=== PATIENT | female | born 1955 | race Caucasian/White ===

== ENCOUNTER 2019-12-26 17:40 | Inpatient (IN) | payer OTHER ==
[~2019-12-26] VITALS: Ht 157.5 cm; Wt 77.6 kg
[2019-12-26] MEDS ORDERED: COZAAR25 MG PO (17:52)
[2019-12-26] MEDS ORDERED: METFORMIN HCL500 M1 PO (17:52)
[2019-12-26] MEDS ORDERED: SYNTHROID137 MCG PO (17:52)
[2019-12-26] MEDS ORDERED: HORIZANT300 MG PO (17:53)
[2019-12-26] MEDS ORDERED: LIPITOR20 MG PO (17:53)
[2019-12-26] MEDS ORDERED: CYNBALTA (17:53)
--- NOTE | 2019-12-26 17:54 | NUR ---
PACIENTE ALERTA Y ORIENTADA X3 QUIEN ESTUBO DE VIAJE POR EUROPA REFIRE TOS SECA Y DOLOR EN PECHO Y ESPALDA DE TANTO TOSER DESDE HACE MAXIMILIANO SEMANA, SE UBICA EN CARMINA DE ESPERA PARA EVALUACION MEDICA.
--- NOTE | 2019-12-26 20:10 | NUR ---
SE ORIENTA AL PACIENTE SOBRE EL TX. SE EXTRAEN MUESTRAS DE JEANA BAJO MEDIDAS ASEPTICAS SE ROTULAN Y ENVIAN AL LABORATORIO SE CANALIZA BAJO MEDIDAS ASEPTICAS SE ADMINISTRAN MEDICAMENTOS MARGARITA ORDEN MEDICA. SE COLOCA EN K8 SE CONECTA A MONITOR CARDIACO Y OXIMETRIA DE PULSO. PTE CONSULTADA CON CARDIOLOGIA.
--- NOTE | 2019-12-26 23:20 | NUR ---
SE RECIBE PTE ALERTA Y ORIENTADA X3 EN CAMA CON BARANDAS ELEVADAS. SE RECIBE PTE CONECTADA A MONITOR CARDIACO Y OXIMETRIA. SE RECIBE PTE CANALIZADA AREA OFE DE EDEMA Y DE ENROJECIMIENTO. PTE CON DRIP. DE TRIDIL 50MG/250ML BAJANDO A 3ML/HR. SE TITULA RATE A 1ML/HR B/P EN 113/61. PTE SE MANTIENE BAJO OBSERVACION POR CAMBIOS.
--- NOTE | 2019-12-27 05:58 | NUR ---
SE RECIBE PACIENTE A LA UNIDAD DE CHEST PAIN ALERTA Y ORIENTADA X3 EN CAMA CON BARANDAS ELEVADAS Y CABECERA A 30 GRADOS, SE CONECTA A MONITOR CARDIACO CON OXIMETRIA DE PULSO. TIENE AREA DE VENOPUNCION PATENTE Y OFE DE EDEMA EN BRAZO DERECHO BAJANDO UN TRIDIL 50MG/250ML A 1ML/HR. PACIENTE ESTABLE AL MOMENTO CON DOLOR DE PATSY MODERADO, EL DOLOR MEKHI ORDENA TYLENOL 1GRAMOA PO STAT. LA PACIENTE TOLERA INTERVENCION DEL RN. SE JOSEF SIGNOS VITALES, SE MANTIENE BAJO OBSERVACION POR CAMBIOS.
--- NOTE | 2019-12-27 07:39 | NUR ---
SE RECIBE PTE DEL TURNO ANTERIOR, ALERTA Y ORIENTADA X 3 EFSERAS, EN CAMA NIEVL MAS BAJO, ADAMS DE IDENTIFICACION Y BARANDAS LEEVADAS POR PRECAUCION, CONECTADA A MONITOR CARDIACO Y OXIMETRIA DE PULSO. SE OBSERVA CON BUEN PATRON RESPIRATORIO, AL MOMENTO SATURANDO 98%. PIEL TIBIA AL TACTO. IV EN ANTEBRAZO RT, EL MISMO PATENTE Y OFE DE EDEMA O ERITEMA CON TRIDIL 50MG/250ML @1ML/HR. AL MOMENTO PTE NO REFIERE DOLOR. SE MANTIENE BAJO OBSERVACION, PENDIENTE A REPETIR LABORATORIOS A LAS 12:00PM. PENDINETE CONSULTA CON DR MILLAN, NOTIFICADA A MS T GRANADOS PARA PROVEER SEGUIMIENTO.
--- NOTE | 2019-12-27 09:20 | NUR ---
MS T GRANADOS DA SEGUIMIENTO A CONSULTA CON DR MILLAN, QUIEN ORDENA REALIZAR UN ECHO, EL MISMO NOTIFICADO A MS JASON POR MS T GRANADOS Y DIETA DIABETICA LUEGO DEL ECHO.
--- NOTE | 2019-12-27 11:24 | NUR ---
SE BUSCA PTE DEL AREA DE NUCLEAR POR ECHO, SE UBICA EN CAMA CONECTADA A MONITOR CARDIACO Y OXIMETRIA DE PULSO.
--- NOTE | 2019-12-27 15:33 | NUR ---
PT ALERTA Y ORIENTADA X3 ESFERAS, YUNG AL MOMENTO. SE RECIBE EN CAMA CON BARANDAS ELEVADAS Y FRENOS COLOCADOS. EN UNIDAD DE DOLOR DE PECHO, CUBICULO 18. CONECTADA A MONITOR CARDIACO HR 71/MIN Y SATUROMETRO DE PULSO 98%, 20RR. RESPIRACIONES ESPONTANEAS. PULMONES SE AUSCULTAN CON SILIVACIAS. ABDOMEN BLANDO. ORINA ESPONTANEA EN COMODE. EXTREMIDADES INFERIORES LIBRES DE EDEMA, OFE MOVIMIENTO DE AMBAS PIERNAS, SIN PROBLEMA ALGUNO. EXTREMIDADES INFERIORES LIBRES DE EDEMA Y/O ERITEMA. HEPARIN LOCK EN ANTEBRAZO DERECHO CON ANGIO 20 PATENTE OFE DE EDEMA Y/O ERITEMA. HEPARIN LOCK EN MANO IZQUIERDA CON ANGIO 18 PATENTE OFE DE EDEMA Y/O ERITMEA. TRIDIL 50MG/[id number] BAJANDO A 1 ML/HRS POR IVPUMP. PT TOLERA TX, TRANQUILA Y SIN DIFICULTAD RESPIRATORIA. SE MANTIENE BAJO OBSERVACION POR CAMBIOS EN MARLI. PENDIENTE VISITA DE INTERNISTA DR AMAYA.
== END 2020-01-02 18:31 | disposition home or self-care (01) | DRG 202 ==
LOC: ER 17:40 → SEC-K 12-27 20:22 → MEDJ 12-27 20:22
PROVIDERS: ADMIT Internal Medicine
PROC: B246ZZZ Ultrasonography of Right and Left Heart (ICD-10-PCS; principal; 2019-12-27)
PROC: 4A033R1 Measurement of Arterial Saturation, Peripheral, Percutaneous Approach (ICD-10-PCS; 2019-12-27)
PROC: 3E0F7GC Introduction of Other Therapeutic Substance into Respiratory Tract, Via Natural or Artificial Opening (ICD-10-PCS; 2019-12-27)
PROC: 4A12X4Z Monitoring of Cardiac Electrical Activity, External Approach (ICD-10-PCS; 2019-12-27)
PROC: BB24ZZZ Computerized Tomography (CT Scan) of Bilateral Lungs (ICD-10-PCS; 2019-12-28)
DX: J20.9 Acute bronchitis, unspecified (principal); J45.41 Moderate persistent asthma with (acute) exacerbation; R65.10 Systemic inflammatory response syndrome (SIRS) of non-infectious origin without acute organ dysfunction; I25.110 Atherosclerotic heart disease of native coronary artery with unstable angina pectoris; I50.42 Chronic combined systolic (congestive) and diastolic (congestive) heart failure; I11.0 Hypertensive heart disease with heart failure; E03.8 Other specified hypothyroidism; E66.09 Other obesity due to excess calories; E11.9 Type 2 diabetes mellitus without complications; J98.4 Other disorders of lung; Z79.4 Long term (current) use of insulin